=== PATIENT | male | born 1965 | race Caucasian/White ===

== ENCOUNTER 2017-05-13 18:20 | Inpatient (IN) | payer BC ==
[~2017-05-13] VITALS: Ht 182.9 cm; Wt 118.0 kg
--- NOTE | ~2017-05-13 | HP ---
PATIENT'S NAME: BAR ASHFORD [facility] AGE: 51 Y [address] ROOM: G6338 [place], [place] [address] LOCATION: GPCU ADMIT DATE: 05/13/2017 History & Physical DISCHARGE DATE: FAMILY PHYSICIAN: PHYSICIAN, UNKNOWN ATTENDING PHYSICIAN: Mackenzie Victor DATE OF SERVICE: 05/13/2017 HISTORY OF PRESENT ILLNESS: Mr. 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 This is the first time he has noticed chest pain after 3 years. Three years back, he had symptoms and had multiple stenting in his coronaries, the last time was 3 years back. Today, around 5:00, when he was just sitting down doing nothing, he started developing central chest pain, which he rated at about 5 to 6 on a scale of 1 to 10, without any radiation or associated features. This was very similar to his pain when he had an FL on the table in [place] when they were doing a stent. He went to the emergency room. The patient was given aspirin, heparin and was sent over right away, and he was taken directly to the [facility] for primary PCI. The patient is not on any regular structured exercise program. He has not been noticing any shortness of breath with his usual activities of daily living. He is in functional class II to III with no paroxysmal nocturnal dyspnea or orthopnea. He denies lightheadedness, dizziness, syncope, presyncope, palpitations, or ankle swelling. Today, when the pain was on, he did notice some sense of being maybe dizzy. The patient has a history of hypertension, type 2 diabetes, and elevated cholesterol. He has significant family history of premature coronary artery disease. There is no history of recent tobacco abuse. He quit smoking a number of years ago. The patient has history of FL, which occurred on the table when he was having a stent put in [place]. He denies rheumatic fever, heart murmur, heart failure, dilated or enlarged heart, or any diagnosed cardiac arrhythmias. His medication list is currently not available. ALLERGIES: NONE. PAST MEDICAL HISTORY: 1. Five separate stents in his heart arteries. PATIENT'S NAME: [facility] AGE: 51 Y [address] ROOM: [address] [address] LOCATION: [facility] ADMIT DATE: 05/13/2017 History & Physical DISCHARGE DATE: FAMILY PHYSICIAN: PHYSICIAN, UNKNOWN ATTENDING PHYSICIAN: Mackenzie Victor 2. Right knee surgery. 3. Right shoulder surgery. 4. He had his shoulder manipulated just recently. 5. History of kidney stones. SOCIAL HISTORY: The patient is . He works at [employer] in [place]. He denies abusing alcohol. His appetite and weight are stable. Sleep is fair. FAMILY HISTORY: Positive for premature coronary artery disease. REVIEW OF SYSTEMS: A 12-point review of systems reveal no significant positives. PHYSICAL EXAMINATION: VITAL SIGNS: His blood pressure is 160/80, heart rate is in the 80s and regular, respiration is 18, afebrile. HEENT: Normal. NECK: Supple with no JVD, thyromegaly, lymphadenopathy, or carotid bruit. PMI is not well located. First and second heart sounds are regular. There are no added sounds or murmurs. CHEST: Clear to auscultation. ABDOMEN: Soft, obese. Bowel sounds are normally present. EXTREMITIES: Reveal no edema. CENTRAL NERVOUS SYSTEM: Intact. ASSESSMENT: A 51-year-old male patient with hypertension, diabetes, elevated cholesterol, and family history of premature coronary artery disease, who has had 5 different stents in the past and at least 1 episode of heart attack on the table as he was having a stent put in, presents with chest pain for just 2 days. Today's chest pain is associated with slightly widened QRS complex and slightly elevated J-point in lead III. His pain has been ongoing for the past at least 2 hours, and he thinks that it is very consistent with his heart pains. RECOMMENDATION: We will proceed with primary PCI after cardiac catheterization proves that he has truly significant coronary occlusion. MACKENZIE VICTOR MD [facility]: 51 Y [address] ROOM: G6[address] [place], [place] [address] LOCATION: [facility] ADMIT DATE: 05/13/2017 History & Physical DISCHARGE DATE: FAMILY PHYSICIAN: PHYSICIAN, UNKNOWN ATTENDING PHYSICIAN: Mackenzie Victor /[id number] D: [id number] T: [id number] HISTORY & PHYSICAL
--- NOTE | ~2017-05-13 | CATH ---
Cardiac Diagnostic + PCI Report Demographics Patient Name AYDE DINERO Gender Male Date of 1965 Age 51 year(s) Patient Number [id number] Date of Study 05/13/2017 Visit Number [id number] Room Number G6[address] [place] [id number] Ht 182.88 cm Wt 118.4 kg Referring Primary Physician Physician Marco A Victor Secondary Physician Physician Mackenzie BAILEY Diagnostic Kayleigh Assisting Physician Physician Mackenzie BAILEY Interventional Kayleigh Physician Weed Control Inspector Physician Mackenzie BAILEY Findings and Conclusions Diagnostic Findings and Conclusion LVEDP 20 AO 140/80 No gradiant Stents seen Calcification involving proximal coronaries RCA 99% in-stent re-stenosis Diagnostic Recommendations PCI to RCA Interventional Findings and Conclusion Successful PCI of RCA with a IGNACIO. Interventional Recommendations DAPT for one year Aggressive 2nd degree preventative measures. Procedure Description The patient was brought to the diagnostic cardiac catheterization-EP laboratory in the fasting, non-sedated state. Informed consent was obtained in the written and verbal form after the risks and benefits were explained. The patient had no further questions and agreed to proceed. The planned puncture-incision site(s) were shaved and prepped with ChloraPrep and draped in the usual sterile manner. Conscious sedation, supplemental oxygen, and pain control medications were delivered by a registered nurse under physician guidance. Surface ECG rhythm, blood pressure measurement, and pulse oximetry were monitored throughout the procedure. Arterial access. The access site was infiltrated with lidocaine. The vessel was entered with the Seldinger technique. A sheath was advanced into the vessel and used for catheter placement. Selective left coronary angiography. A catheter was advanced into the left coronary vessel ostium under Fluoroscopic guidance. Contrast was injected by hand. Images were obtained in multiple projections. Selective right coronary angiography. A catheter was advanced into the right coronary vessel ostium under fluoroscopic guidance. Contrast was injected by hand. Images were obtained in multiple projections. Left heart catheterization. A catheter was advanced across the aortic valve to the left ventricle under fluoroscopic guidance. Resting hemodynamics were obtained. Stent Placement: A guiding catheter was used to intubate the vessel. A 0.14 wire was used to cross the lesion. A Drug Eluting Stent was placed. Post placement angiograms were performed. Arterial artery hemostasis was achieved. The patient was transferred to a regular nursing floor via cart accompanied by a nurse. The patient left the laboratory in stable condition. Diagnostic Cath Status: Emergency Procedure Procedure Type Diagnostic procedure:Angiography:, Coronary Angios /[facility] PCI procedure:Drug Eluting Coronary Stent:, RCA Indications: Acute MS. The procedure was explained in detail to the patient. Risks, complications and alternative treatments were reviewed. Written consent was obtained. Medications Reviewed with Patient prior to Procedure. Angiographic Findings Dominance: Right Cardiac Arteries and Lesion Findings LMCA: Abnormal.luminal irregularities LAD: Abnormal.Type 3 Mild diffuse disease Diag D2 ostial 40% stenosis D5 Ostial 40% after D3 70 lesion in LAD LCx: Abnormal.Mild diffuse luminal disease. RCA: Abnormal.Dominant, proximal and mid long stented segment. Distal RCA long 0% Deo flow 0-3 Lesion on Mid RCA: 99% stenosis reduced to 0%. Pre procedure DEO 0 flow was noted. Post Procedure DEO III flow was present. The guidewire cross was successful.The lesion was diagnosed as a high risk lesion.Culprit lesion. The lesion was previously treated with the following techniques: stent unknown type. This is in-stentrestenosis. Devices used - Luge Wire .014 x 182. Number of passes: 1. - Emerge Balloon 2.5 x 20. 2 inflation(s) to a max pressure of: 14 telly. - Promus Premier 2.75 x 32 Stent. 1 inflation(s) to a max pressure of: 14 telly. Coronary Tree Procedure Data Procedure Date Date: 05/13/2017Start: 07:25 PMEnd: 08:31 PM Entry Locations - Retrograde Percutaneous access was performed through the Right Femoral artery (Primary location). A 7 Fr sheath was inserted. Hemostasis was successfully obtained using Perclose ProGlide (Portillo). Closure Comments: by. Sabino Pappas Procedure Medications Order and Administration + + + + + !Time !Medication !Dosage !Route ! + + + + 05/13/2017 07:27 !Versed !1 mg ! ! !PM ! ! ! ! + + + + 05/13/2017 07:28 !Fentanyl !25 mcg ! ! !PM ! ! ! ! + + + + 05/13/2017 07:38 !Heparin (ACC_3) !4000 units !I.V. bolus ! !PM ! ! ! ! + + + + 05/13/2017 07:39 !Aggrastat (Tirofiban) !2925 mcg !I.V. bolus ! !PM ! ! ! ! + + + + 05/13/2017 07:43 !Aggrastat (Tirofiban) !0.15 mcg/kg/min!I.V. drip ! !PM ! ! ! ! + + + + + !05/13/2017 07:54 !Heparin (ACC_3) ! !I.V. bolus ! !PM ! ! ! ! + + + + + !05/13/2017 07:59 !0.9% NaCl !70 ml/hr !I.V. drip ! !PM ! ! ! ! + + + + + !05/13/2017 07:59 !Brilinta (Ticagrelor) !180 mg !P.O. ! !PM !(ACC_20) ! ! ! + + + + + Devices Used - A6 Fr. BS JR 4 Diag. Catheterwas used for:Right coronary angiography. - A6 Fr. BS JL 4 Diag. Catheterwas used for:Left coronary angiography. - A6 Fr. JR4 Guide Catheterwas used for:RCA Intervention. - A6 Fr. BS Angled Pigtail Diag. Catheterwas used for:LV Pressures. Contrast Material - Isovue 155818 ml Fluoroscopy Time: Diagnostic: 7:54 minutes. Total: 7:54 minutes. Estimated Blood Loss: 10 ml. Medical History Allergies - No known allergies. Risk Factors The patient risk factors include:prior PCI;hypercholesterolemia, hypertension, family history of premature CAD, orally-treated diabetes mellitus, last creatinine: 0.8 mg/dl, creatinine clearance: 187.06 ml/min, dyslipidemia, renal failure, former tobacco use and prior MS . Admission Data Admission Date: 05/13/2017 Admission Time: 07:07 PM Insurance Payors: Private health insurance. Clinical Evaluation Leading to Procedure - The patient's CAD presentation was assessed as: Non-STEMI. - The patient's anginal syndrome during the past two weeks was assessed as: Class III according to the [place] Cardiovascular Society Classification System (CCS). Hemodynamics Condition: Rest O2 Consumption: Estimated: 297.19Heart Rate: 82 bpm Pressures (mmHg) +-----+ + !Site !Pressure ! +-----+ + !AO !158/85 (116) ! +-----+ + !LV !147/8 ,23 ! +-----+ + !LV !149/8 ,22 ! +-----+ + !AO !148/78 (111) ! +-----+ + !LV !148/7 ,19 ! +-----+ + Valve Gradients and Areas + +---------+---------+---------+ +---------+ + !Valve !Peak !Mean !Area !Index !Flow !Source ! + +---------+---------+---------+ +---------+ + !Aortic !0 !0 ! ! ! ! ! + +---------+---------+---------+ +---------+ + !Aortic !0 !0 ! ! ! ! ! + +---------+---------+---------+ +---------+ + Shunts Oxygen Values O2 Capacity 227.12 O2 Consumption 297.19 Discharge Data Discharge Date: 05/15/2017 Hospital Status: Inpatient Signatures dtt: Mackenzie Victor: 05/13/17 1925 Physician Self Edit
--- NOTE | ~2017-05-13 | ECHO ---
Transthoracic Echocardiography Report (TTE) Demographics Patient Name BAR MESSER Date of Study 05/14/2017 Patient Number [id number] Visit Number [id number] Date of 1965 Room Number G6338 Gender Male Number Age 51 year(s) Referring Rubber Tubing Splicer Joey RVT, RDCS Physician Betty Physician Interpreting Kayleigh Mann MD Ambulatory Nurse Physician Supervising Ordering Kayleigh Mann MD, MD/MLP Physician Nurse Stress Cook Helper Vegetable Conclusions Contractility Score Summary Normal Left Ventricular contractility was noted. Summary The estimated left ventricular ejection fraction is 60-65% with normal internal dimension and WM.Mild to moderate concentric left ventricular hypertrophy. Trivial TR. Procedure Type of Study TTE procedure:2D Echocardiogram, M-Mode, Doppler , Color Doppler. Procedure Date Date: 05/14/2017 Start: 11:01 AM Study Location: Inpatient Portable Technical Quality: Adequate visualization Additional Indications:STEMI, prolonged CP Appropriate Use Criteria: 9 Patient Status: Routine HR: 56 bpm BP: 168/88 mmHg M-Mode/2D Measurements LV Diastolic Dimension: 5.08 cm LV Systolic Dimension: 3.21 cm LV Septum Diastolic: 1.35 cm LV PW Diastolic: 1.48 cm AO Root Dimension: 2.7 cm Cardiac Output: 3.2 l/min AV Cusp Separation: 2.1 cm RV Diastolic Dimension: 3.34 cm LA volume: 23 ml LVOT: 2.1 cm RV Base: 2.19 cm LVOT VTI: 16.5 cm RV Mid: 2.91 cm LV Stroke volume: 57.12 ml TAPSE: 2.52 cm TDI-S': 14.9 cm/s Doppler Measurements AV Peak Velocity: 0.71 m/s MV Peak E-Wave: 0.62 m/s AV Peak Gradient: 2.02 mmHg MV Peak A-Wave: 0.45 m/s AV Mean Gradient: 1 mmHg MV E/A Ratio: 1.4 LVOT Peak Velocity: 0.59 m/s MV P1/2t: 53 msec PV Peak Velocity: 0.77 m/s E' Septal Velocity: 0.08 m/s PV Peak Gradient: 2.37 mmHg E' Lateral Velocity: 0.06 m/s A' Septal Velocity: 0.06 m/s A' Lateral Velocity: 0.05 m/s Findings Left Ventricle Mild to moderate concentric left ventricular hypertrophy with normal internal dimension,EF and WM. Right Ventricle Normal right ventricle structure and function. Left Atrium Normal left atrial size. Right Atrium Normal right atrial size. Mitral Valve Normal mitral valve structure and function. Aortic Valve Normal aortic valve structure and function. Tricuspid Valve Trivial tricuspid regurgitation by color Doppler. Pulmonic Valve Normal pulmonic valve structure and function. Pericardial Effusion No evidence of pericardial effusion. Miscellaneous Visualized portions of the aortic root and ascending aorta appear normal in size. Pleural Effusion No evidence of pleural effusion. Contractility Score LV regional wall motion:(0-Non visualized 1-Normal 2-Hypokinesis 3-Akinesis 4-Dyskinesis 5-Aneurysm) Signature dtt: Mackenzie Victor dtd: 05/14/17 1107 Physician Self Edit
[2017-05-13 20:03] LABS: ALBUMIN 3.6 gm/dL (3.5-5.0); ALK PHOS 103 IU/L (33-138); ALT 29 IU/L (12-78); ANION GAP 12.3 (10.0-19.0); AST 17 IU/L (10-40); BLOOD UREA NITROGEN 11 mg/dL (6-24); CALCIUM 8.5 mg/dL (8.5-10.5); CHLORIDE 106 mMol/L (96-110); CO2 26 mMol/L (22-32); CREATININE 0.8 mg/dL (0.6-1.3); POTASSIUM 4.3 mMol/L (3.7-5.1); SODIUM 140 mMol/L (135-145); TOTAL BILIRUBIN 0.6 mg/dL (0.0-1.5); TOTAL PROTEIN 7.2 g/dL (6.0-8.4)
[2017-05-13] MEDS ORDERED: PRINIVIL (ZESTR20 MG PO (20:45)
[2017-05-13] MEDS ORDERED: METFORMIN HCL1000 MG PO (20:46)
[2017-05-13] MEDS ORDERED: LIPITOR40 MG PO (20:47)
[2017-05-13] MEDS ORDERED: LEVEMIR100 UNIT/1 SUB-Q (20:48)
[2017-05-13] MEDS ORDERED: NEURONTIN300 MG PO (20:48)
[2017-05-13] MEDS ORDERED: CARVEDILOL12.5 MG PO (20:49)
[2017-05-13] MEDS ORDERED: NORVASC5 MG PO (20:49)
[2017-05-13] MEDS ORDERED: LASIX20 MG PO (20:50)
[2017-05-14 07:50] LABS: ALBUMIN 3.1 gm/dL (3.5-5.0); ALK PHOS 89 IU/L (33-138); ALT 28 IU/L (12-78); ANION GAP 11.7 (10.0-19.0); AST 65 IU/L (10-40); BLOOD UREA NITROGEN 10 mg/dL (6-24); CALCIUM 8.6 mg/dL (8.5-10.5); CHLORIDE 107 mMol/L (96-110); CO2 28 mMol/L (22-32); CREATININE 0.7 mg/dL (0.6-1.3); POTASSIUM 3.7 mMol/L (3.7-5.1); SODIUM 143 mMol/L (135-145); TOTAL BILIRUBIN 0.5 mg/dL (0.0-1.5); TOTAL PROTEIN 6.2 g/dL (6.0-8.4)
[2017-05-15] MEDS ORDERED: BRILINTA90 MG PO (12:09)
[2017-05-15] MEDS ORDERED: PROTONIX40 MG PO (12:09)
[2017-05-15] MEDS ORDERED: NITROSTAT0.4 MG PO (12:10)
== END 2017-05-15 12:44 | disposition disaster alternative care site (69) | DRG 247 ==
LOC: UNDOADMIN 19:00 → GPCU 19:00
PROVIDERS: ADMIT Internal Medicine Interventional Cardiology
DX: I21.11 ST elevation (STEMI) myocardial infarction involving right coronary artery (principal); E11.65 Type 2 diabetes mellitus with hyperglycemia; T82.855A Stenosis of coronary artery stent, initial encounter; I10 Essential (primary) hypertension; I25.10 Atherosclerotic heart disease of native coronary artery without angina pectoris; I25.84 Coronary atherosclerosis due to calcified coronary lesion; Z79.4 Long term (current) use of insulin; E66.9 Obesity, unspecified; Z68.36 Body mass index [BMI] 36.0-36.9, adult; E78.5 Hyperlipidemia, unspecified; I25.2 Old myocardial infarction; G89.18 Other acute postprocedural pain; M25.511 Pain in right shoulder; Z87.891 Personal history of nicotine dependence; Z82.49 Family history of ischemic heart disease and other diseases of the circulatory system; Z87.442 Personal history of urinary calculi
CPT/HCPCS: C1725; C1760; C1769; C1874; C1887; C9606; J1644; J2250; J2405; J3010; J3246; J3475; J7030

== ENCOUNTER → 2017-05-13 | Outpatient (CLI) | payer BC ==
[~2017-05-13] MED LIST: ASPIRIN EC81 MG PO; BRILINTA90 MG PO; CARVEDILOL12.5 MG PO; JARDIANCE10 MG PO; LASIX20 MG PO; LEVEMIR100 UNIT/1 SUB-Q; LIPITOR40 MG PO; METFORMIN HCL1000 MG PO; NEURONTIN300 MG PO; NITROSTAT0.4 MG PO; NORVASC5 MG PO; PRINIVIL (ZESTR20 MG PO; PROTONIX40 MG PO
== END | disposition disaster alternative care site (69) ==
LOC: GAIR 18:49
DX: I49.9 Cardiac arrhythmia, unspecified (principal); I10 Essential (primary) hypertension; E78.5 Hyperlipidemia, unspecified; R07.9 Chest pain, unspecified
CPT/HCPCS: A0422; A0431; A0436; J3010

== ENCOUNTER 2017-05-16 14:40 | Observation (INO) | payer BC ==
[~2017-05-16] VITALS: Ht 182.9 cm; Wt 119.0 kg
--- NOTE | ~2017-05-16 | ER ---
PATIENT'S NAME: BAR ASHFORD [facility] AGE: 51 Y [address] ROOM: [place] [address] LOCATION: GPCU ADMIT DATE: 05/16/2017 ER/Outpatient Report DISCHARGE DATE: FAMILY PHYSICIAN: Peggy Sanchez APRN ATTENDING PHYSICIAN: Mackenzie Victor CHIEF COMPLAINT: Chest pain. HISTORY OF PRESENT ILLNESS: [place]. [place] developed chest pain. This feels exactly like his chest pain that he had 4 days ago with a heart attack. The pain is pressure like in the center of his chest. It does not radiate much. It is difficult for him to describe other than it just feels like pain. He has taken 2 nitro and that took it from a 9 or 10 down to about a 7 or 8; however, he still feels very uncomfortable. He did have a heart attack on and was stented by Dr. Victor. He has not started his medication as it was too expensive. He was discharged yesterday and was pain-free up until today. He was at rest when these symptoms started. PAST MEDICAL HISTORY: Documented on the record and reviewed by me. SOCIAL HISTORY: Documented on the record and reviewed by me. MEDICATIONS: Documented on the record and reviewed by me. ALLERGIES: DOCUMENTED ON THE RECORD AND REVIEWED BY ME. REVIEW OF SYSTEMS: All systems were reviewed and negative except as noted in the HPI. PHYSICAL EXAMINATION: VITAL SIGNS: Blood pressure 144/76, pulse 75, respiratory rate 14, temperature 97.8, and SpO2 is 98% on room air. Pain is rated at 3 to 5 as it does fluctuate some. GENERAL: Age-appropriate male, recumbent on the exam table, in mild pain. No outward signs of distress. NEUROLOGIC: Awake and alert. GCS 15. No focal deficits. No asymmetry. HEENT: Normocephalic, atraumatic. Eyes are PERRL. Oropharynx is clear. NECK: Supple. Trachea is midline. CHEST: Heart has regular rate and rhythm with no murmurs. PATIENT'S NAME: BAR ASHFORD [facility] AGE: 51 Y [address] ROOM: [place] [address] LOCATION: GPCU ADMIT DATE: 05/16/2017 ER/Outpatient Report DISCHARGE DATE: FAMILY PHYSICIAN: Peggy Sanchez APRN ATTENDING PHYSICIAN: Mackenzie Victor LUNGS: Clear to auscultation bilateral. No rhonchi, wheezes, or rales. ABDOMEN: Soft, nontender, nondistended. No rebound or guarding. BACK: Normal to inspection and palpation. GROIN: Notable for some ecchymosis at the venipuncture site, but otherwise unremarkable. EXTREMITIES: Warm and well perfused. No obvious other abnormalities. LABORATORY DATA AND X-RAYS: Chest x-ray reviewed by me is unremarkable. EKG is unchanged compared to prior EKG from 05/14. Labs: CMS with no appreciable abnormalities other than a glucose of 270. Troponin is 2.020, CK-MB is 1.6, CPK is 50. Magnesium of 1.5. INR is 1. CBC with no appreciable abnormalities. IMPRESSION: Chest pain. EMERGENCY DEPARTMENT COURSE: The patient was seen and evaluated as above. He has active chest pain, and was started on a nitroglycerin drip, which did improve his chest pain somewhat, but it was causing him to have worsening headache. Blood pressures remained okay. He was given Dilaudid with resolution of chest pain. I discussed the case with Dr. Victor, customer logistics manager. There is some concern for possible in-stent restenosis. For that reason, the patient was taken by the bolt labeler team for further evaluation and treatment of his chest pain. He was not having any chest pain upon departure from the ER. Second set of enzymes were drawn but not reported, and second round EKG was not obtained as the patient left the ER before that could happen. All questions were answered, and the patient was admitted. MD BRETT BLANKENSHIP/yemi /[id number] d: 05/17/17 0652 t: 05/24/17 1010, OUTPATIENT REPORT
--- NOTE | ~2017-05-16 | CON ---
PATIENT'S NAME: BAR ASHFORD [facility] AGE: 51 Y [address] ROOM: [place] [address] LOCATION: GPCU ADMIT DATE: 05/16/2017 Consultation DISCHARGE DATE: FAMILY PHYSICIAN: Peggy Sanchez APRN ATTENDING PHYSICIAN: Mackenzie Victor REASON FOR CONSULTATION: Diabetes management. CHIEF COMPLAINT: Chest pain. HISTORY OF PRESENT ILLNESS: Mr. Bar Ashford is a 51-year-old gentleman who was recently discharged from the hospital after getting stenting to the LAD as well as circumflex, presented to the emergency department again today with chest pain, which was located in the center, pressure like, 8/6, no radiation, no alleviating factors, little shortness of breath associated with it, but no dizziness or anxiety or diaphoresis. He denied any PND, orthopnea, or leg swelling. He denied any abdominal pain, burning on urination, constipation, diarrhea, or muscle tenderness. There was no association of movement with this chest pressure. He came to the emergency department and Dr. Victor was consulted and he was taken directly to the oil field laborer where a mid LAD lesion was stented again. I saw him postoperatively and nothing of changes I have mentioned in the HPI. REVIEW OF SYSTEMS: All other systems are reviewed and are negative except what is mentioned in the HPI. ALLERGIES: NO KNOWN DRUG ALLERGIES. PAST MEDICAL HISTORY: Coronary artery disease with multiple stentings done, insulin dependent diabetes, hypertension, and history of knee surgeries. MEDICATIONS: Being reconciled right now. FAMILY HISTORY: Positive for premature coronary artery disease. SOCIAL HISTORY: The patient quit smoking 6 years ago. PATIENT'S NAME: BAR ASHFORD [facility] AGE: 51 Y [address] ROOM: [address] [address] LOCATION: GPCU ADMIT DATE: 05/16/2017 Consultation DISCHARGE DATE: FAMILY PHYSICIAN: Peggy Sanchez APRN ATTENDING PHYSICIAN: Mackenzie Victor PHYSICAL EXAMINATION: VITAL SIGNS: Reviewed. Blood pressure 112/68, pulse 62, afebrile, and saturating 95% on room air. GENERAL: No acute distress. Alert and oriented x3. HEENT: Head: Atraumatic, normocephalic. Eyes: Nonicteric. No pallor. Oropharynx: Moist mucous membranes. CARDIOVASCULAR: S1, S2. No murmurs, gallops, or rubs. LUNGS: Clear to auscultation bilaterally. ABDOMEN: Soft, nontender, and nondistended. Bowel sounds present. EXTREMITIES: No clubbing, cyanosis, or edema. PSYCHIATRY: Normal affect, mood, and speech. NEUROLOGIC: Cranial nerves 2 through 12 intact. No motor or sensory deficits. MUSCULOSKELETAL: No muscle tenderness or swelling noted. ENDOCRINE: No thyromegaly or myxedema noted. LYMPHATICS: No lymphangiitis or lymphadenopathy noted. LABORATORY DATA: EKG was done in the emergency department showed sinus bradycardia with Q-waves in the anterior as well as inferior leads. Troponins were done, they were elevated up to the level of 3, but he recently had a full-blown myocardial infarction. Rest of the lab work is pending at this point. ASSESSMENT/PLAN: 1. Insulin-dependent diabetes mellitus. 2. Hypertension. 3. Coronary artery disease. PLAN: In the previous hospitalization, his HbA1c was found to be 11.9. We started him on 50 units of Levemir b.i.d. and still he was in above 200s all the time. On discharge, we last time advised him to go to the primary care physician in 1 week with a blood glucose record and insulin can be adjusted. Today, we are going to increase the dose of Levemir to 60 b.i.d. and moderate scale sliding scale insulin. We are going to monitor the blood glucose and make adjustment as necessary. Rest of the management per Cardiology. Thank you for involving us in the care of this patient. MD CELESTINE SAUL/yemi PATIENT'S NAME: BAR ASHFORD [facility] AGE: 51 Y [address] ROOM: [address] [place], [place] [address] LOCATION: GPCU ADMIT DATE: 05/16/2017 Consultation DISCHARGE DATE: FAMILY PHYSICIAN: Peggy Sanchez ENVIRONMENTAL COMPLIANCE OFFICER ATTENDING PHYSICIAN: Mackenzie Victor /[id number] d: 05/16/17 2257 t: 05/17/17 0354, CONSULTATION REPORT
--- NOTE | ~2017-05-16 | CATH ---
Cardiac Diagnostic + PCI Report Demographics Patient Name AYDE DINERO Gender Male Date of 1965 Age 51 year(s) Patient Number [id number] Date of Study 05/16/2017 Visit Number [id number] Room Number G6[address] [place] [id number] Ht 182.88 cm Wt 118 kg Referring Yuridia Lobato MD Primary Physician Physician Performing Kayleigh Secondary Physician Physician Mackenzie BAILEY Diagnostic Kayleigh Assisting Physician Physician Mackenzie BAILEY Interventional Kayleigh Physician Feed Mill Manager Physician Mackenzie BAILEY Findings and Conclusions Diagnostic Findings and Conclusion LVEDP 6. No gradient across aortic valve. Calcification involving proximal coronaries. Mid LAD lesion of 70% with an iFR of 0.86. Diagnostic Recommendations PCI of mid LAD lesion with IGNACIO. Interventional Findings and Conclusion Mid LAD 70%-0% TAHMINA 3 flow. Interventional Recommendations DAPT x 2 years. Aggressive secondary prevention measures. Procedure Description The patient was brought to the diagnostic cardiac catheterization-EP laboratory in the fasting, non-sedated state. Informed consent was obtained in the written and verbal form after the risks and benefits were explained. The patient had no further questions and agreed to proceed. The planned puncture-incision site(s) were shaved and prepped with ChloraPrep and draped in the usual sterile manner. Conscious sedation, supplemental oxygen, and pain control medications were delivered by a registered nurse under physician guidance. Surface ECG rhythm, blood pressure measurement, and pulse oximetry were monitored throughout the procedure. Arterial access. The access site was infiltrated with lidocaine. The vessel was entered with the Seldinger technique. A sheath was advanced into the vessel and used for catheter placement. Selective left coronary angiography. A catheter was advanced into the left coronary vessel ostium under Fluoroscopic guidance. Contrast was injected by hand. Images were obtained in multiple projections. Selective right coronary angiography. A catheter was advanced into the right coronary vessel ostium under fluoroscopic guidance. Contrast was injected by hand. Images were obtained in multiple projections. Left heart catheterization. A catheter was advanced across the aortic valve to the left ventricle under fluoroscopic guidance. Resting hemodynamics were obtained. iFR measurement was performed. The vessel was entered with a guiding catheter. The iFR wire was normalized and then advanced across the lesion. Measurements were taken. Angioplasty and Stent Placement: A guiding catheter was used to intubate the vessel. A 0.14 wire was then used to cross the lesion. A balloon catheter was placed across the lesion and inflated. The balloon catheter was then removed. A Drug Eluting Stent was placed and inflated. Post placement angiograms were performed. iFR measurement was performed. The vessel was entered with a guiding catheter. The iFR wire was normalized and then advanced across the lesion. Measurements were taken. Arterial artery hemostasis was achieved. The patient was transferred to a regular nursing floor via cart accompanied by a nurse. The patient left the laboratory in stable condition. Diagnostic Cath Status: Emergency Interventional Cath Status: Emergency Procedure Procedure Type Diagnostic procedure:Angiography:, Coronary Angios w/C PCI procedure:Drug Eluting Coronary Stent:, LAD, Additional Imaging:, FFR/iFR:, Initial Vessel, Add'l Vessel Indications: Chest pain. The procedure was explained in detail to the patient. Risks, complications and alternative treatments were reviewed. Written consent was obtained. Medications Reviewed with Patient prior to Procedure. Angiographic Findings Dominance: Right Cardiac Arteries and Lesion Findings LMCA: Minor Luminal Irregularities. LAD: Moderate diffuse disease. Stent seen. Lesion on Mid LAD: Proximal subsection.70% stenosis 20 mm length reduced to 0%. Pre procedure TAHMINA III flow was noted. Post Procedure TAHMINA III flow was present. The guidewire cross was successful.The lesion was diagnosed as a moderate risk lesion.Culprit lesion. Treatment results:Interventional treatment was successful. Comments:iFR 0.86 Devices used - Verrata Pressure Wire. Number of passes: 1. - Emerge Balloon 2.0 x 15. 1 inflation(s) to a max pressure of: 10 telly. - Promus Premier 2.25 x 20 Stent. 1 inflation(s) to a max pressure of: 16 telly. - Verrata Pressure Wire. Number of passes: 1. LCx: Lesion on 1st Ob Elsie: Ostial.50% stenosis . Comments:iFR 0.94 RCA: Stent patent. PL moderate diffuse disease.There is a previous stent on Mid RCA. Coronary Tree Procedure Data Procedure Date Date: 05/16/2017Start: 05:56 PMEnd: 07:09 PM Entry Locations - Retrograde Percutaneous access was performed through the Right Radial artery (Primary location). A 6 Fr sheath was inserted. Hemostasis was successfully obtained using Mechanical Compression. Closure Comments: R band with 12 cc air deployed by RT. Candi. Procedure Medications Order and Administration + + + +---------+ !Time !Medication !Dosage !Route ! + + + +---------+ !05/16/2017 !Fentanyl !25 mcg !I.V. ! !05:48 PM ! ! ! ! + + + +---------+ !05/16/2017 !Versed !1 mg !I.V. ! !05:49 PM ! ! ! ! + + + +---------+ !05/16/2017 !Brilinta (Ticagrelor) (ACC_20) !180 mg !P.O. ! !05:51 PM ! ! ! ! + + + +---------+ !05/16/2017 !NATHAN Radial Cocktail: Nitroglycerin ! !I.A. ! !05:56 PM !100mcg, Verapamil 3 mg, Lidocaine ! ! ! ! !40mg (ACC_3) ! ! ! + + + +---------05/16/2017 !Heparin (ACC_3) !5000 units !I.V. ! !05:57 PM ! ! ! ! + + + +---------05/16/2017 !Aggrastat (Tirofiban) !29.25 mg !I.V. ! !06:11 PM ! ! !bolus ! + + + +---------05/16/2017 !Aggrastat (Tirofiban) !0.15 !I.V. ! !06:11 PM ! !mcg/kg/min !bolus ! + + + +---------+ 05/16/2017 !Heparin (ACC_3) !5000 units !I.V. ! !06:14 PM ! ! ! ! + + + +---------+ !05/16/2017 !0.9% NaCl !75 ml/hr !I.V. drip! !06:24 PM ! ! ! ! + + + +---------+ !05/16/2017 !Fentanyl !25 mcg !I.V. ! !06:36 PM ! ! ! ! + + + +---------+ !05/16/2017 !Nitroglycerin ! !I.V. drip! !07:07 PM ! ! ! ! + + + +---------+ Devices Used - A6 Fr. BS JR 4 Diag. Catheterwas used for:Right coronary angiography. - A6 Fr. BS JL 4 Diag. Catheterwas used for:Left coronary angiography. - A6 Fr. XBLAD 3.5 Guide Catheterwas used for:LAD Intervention. Contrast Material - Isovue [id number] ml Fluoroscopy Time: Diagnostic: 17:42 minutes. Total: 17:42 minutes. Fluoroscopy Dose: Diagnostic: 1920 mGy. Total: 1920 mGy. Estimated Blood Loss: 30 ml. Additional [facility] PCI Information PCI Indication:PCI for high risk Non-STEMI or unstable angina. Medical History Performed Procedures and Imaging Results - No ACC stress or imaging studies were performed. Allergies - No known allergies. Risk Factors The patient risk factors include:prior PCI on 05/13/2017;hypertension, family history of premature CAD, diabetes mellitus, last creatinine: 1 mg/dl, creatinine clearance: 149.14 ml/min, dyslipidemia, former tobacco use and prior AL . Admission Data Admission Date: 05/16/2017 Admission Time: 03:55 PM Admit Source: Emergency department Insurance Payors: Private health insurance. Admission Medications + +------+------+ + + + + !Medication !Dosage!Times !Last !Last !Administered !Comments ! ! ! !Per !Delivery !Delivery ! ! ! ! ! !Day !Date !Time ! ! ! + +------+------+ + + + + !Statin (any)! ! ! ! !Yes ! ! + +------+------+ + + + + !NITA ! ! ! ! !Yes ! ! !Inhibitor ! ! ! ! ! ! ! !(any) ! ! ! ! ! ! ! + +------+------+ + + + + !Beta Estrella! ! ! ! !Yes ! ! !(any) ! ! ! ! ! ! ! + +------+------+ + + + + !Bivalirudin ! ! ! ! !Yes ! ! + +------+------+ + + + + Clinical Evaluation Leading to Procedure - The patient's CAD presentation was assessed as: Non-STEMI.The symptom onset was first noted on 05/13/2017 01:00 PM(time was estimated). - The patient's anginal syndrome during the past two weeks was assessed as: Class IV according to the [place] Cardiovascular Society Classification System (CCS). Anti-anginal medications were prescribed during the past two weeks. The medications are: Beta Blockers and Ca channel Blockers. Hemodynamics Condition: Rest O2 Consumption: Estimated: 291.86Heart Rate: 77 bpm Pressures (mmHg) +-----+ + !Site !Pressure ! +-----+ + !LV !128/3 ,6 ! +-----+ + !LV !124/1 ,5 ! +-----+ + !AO !130/81 (103) ! +-----+ + !LV !126/3 ,7 ! +-----+ + !AO !121/75 (97) ! +-----+ + Valve Gradients and Areas + +---------+---------+---------+ +---------+ + !Valve !Peak !Mean !Area !Index !Flow !Source ! + +---------+---------+---------+ +---------+ + !Aortic !0 !0 ! ! ! ! ! + +---------+---------+---------+ +---------+ + !Aortic !0 !0 ! ! ! ! ! + +---------+---------+---------+ +---------+ + Shunts Oxygen Values O2 Capacity 218.96 O2 Consumption 291.86 Discharge Data Discharge Date: 05/17/2017 Hospital Status: Inpatient Signatures dtt: Mackenzie Victor dtrio: 05/16/17 1756 Physician Self Edit
--- NOTE | ~2017-05-16 | HP ---
PATIENT'S NAME: BAR ASHFORD [facility] AGE: 51 Y [address] ROOM: [place] [address] LOCATION: GPCU ADMIT DATE: 05/16/2017 History & Physical DISCHARGE DATE: FAMILY PHYSICIAN: Peggy Sanchez APRN ATTENDING PHYSICIAN: Mackenzie Victor DATE OF SERVICE: 05/16/2017 HISTORY OF PRESENT ILLNESS: Mr. Ashford is a 51-year-old male patient, who was hospitalized with an acute inferior wall KS on 05/13/2017 and underwent one long drug-eluting stent in the proximal ostial RCA for a long segment and diffuse in-stent restenosis of previously placed stents. After he went home, his insurance company did not approve his Brilinta and so he did not take a dose of Brilinta on 05/15 evening and 05/16 morning. He also did not take his baby aspirin on 05/16 morning. Around 1 o'clock on 05/16/2017, the patient developed some discomfort in his chest, very similar to his KS pain. So, he came to the emergency room where his initial set of EKG and enzymes were unremarkable, other than the fact that his troponins are still trending down slowly from the previous increase at the time of his KS. As his EKG did not show anything acute, he was initially treated with medications including getting his aspirin, Brilinta, which both administered in the catheterization lab. Before coming to the paving and surfacing labourer, he was in the emergency room, getting his pain under control with IV nitroglycerin, Dilaudid, and heparin. By the time, he was in the paving and surfacing labourer, he was pain free. The patient has history of coronary artery disease and has had multiple stents put in a number of years ago. During one of those stent placement, he apparently did have an KS. He has a history of hypertension, type 2 diabetes, and elevated cholesterol. He has significant family history of premature coronary artery disease. There is no history of recent tobacco abuse. He quit smoking a number of years ago. He is currently in functional class 2-3 with no paroxysmal nocturnal dyspnea or orthopnea. He denies lightheadedness, dizziness, syncope, presyncope, palpitations, or ankle swelling. He has no history of rheumatic fever, heart murmur, heart failure, dilated or enlarged heart or any diagnosed cardiac arrhythmias. His echocardiogram on May 14 revealed an ejection fraction of 60-65% with [id number] LVH with normal internal dimension and wall motion. His current list of medications includes, PATIENT'S NAME: BAR ASHFORD [facility] AGE: 51 Y [address] ROOM: G[address] [place], [place] [address] LOCATION: GPCU ADMIT DATE: 05/16/2017 History & Physical DISCHARGE DATE: FAMILY PHYSICIAN: Peggy Sanchez APRN ATTENDING PHYSICIAN: Mackenzie Victor 1. Lisinopril 20 mg a day. 2. Metformin 1 g b.i.d. 3. Atorvastatin 80 mg a day. 4. Insulin. 5. Gabapentin 300 mg b.i.d. 6. Carvedilol 12.5 b.i.d. 7. Amlodipine 5 mg a day. 8. Furosemide 20 mg p.r.n. 9. Protonix 40 mg a day. 10. Brilinta 90 b.i.d. 11. Baby aspirin 81 mg a day. 12. Nitroglycerin p.r.n. ALLERGIES: NO KNOWN DRUG ALLERGY. PAST MEDICAL HISTORY: 1. Five different stent placed in his coronaries. 2. Right knee surgery. 3. Right shoulder surgery. 4. Shoulder manipulation done on his right shoulder recently. 5. History of kidney stones. SOCIAL HISTORY: The patient is . He works at [employer] in [place]. He denies abusing alcohol. His appetite and weight are stable. Sleep is fair. FAMILY HISTORY: Positive for premature coronary artery disease. REVIEW OF SYSTEMS: A 12-point review of systems revealed, 1. He has lately been feeling fatigued. 2. He has also somewhat been gaining weight. PHYSICAL EXAMINATION: VITAL SIGNS: On examination, his blood pressure is 160/80, heart rate is in the 70s and 80s, respirations 18, and afebrile. HEENT: Normal. NECK: Supple with no JVD, thyromegaly, lymph adenopathy, or carotid bruit. HEART: PMI is not well located. First and second heart sounds are regular. There are no added sounds or murmurs. CHEST: Clear to auscultation. ABDOMEN: Soft and nontender. Bowel sounds are normally present. EXTREMITIES: Reveal no edema. PATIENT'S NAME: ASHFORD, BAR [facility] AGE: 51 Y [address] ROOM: [place] [address] LOCATION: [facility] ADMIT DATE: 05/16/2017 History & Physical DISCHARGE DATE: FAMILY PHYSICIAN: Peggy Sanchez APRN ATTENDING PHYSICIAN: Mackenzie Victor CENTRAL NERVOUS SYSTEM: Intact. ASSESSMENT: A 51-year-old male patient with a recurrence of chest pain, just 4 days after his initial drug-eluting stent placement for acute inferior wall myocardial infarction. He is going to be taken to the paving and surfacing labourer and cardiac catheterization will be performed, and based on his anatomy, further management decisions will be made. MD NATHAN PEREA/yemi /[id number] D: T: HISTORY & PHYSICAL
[~2017-05-16 14:40] MED LIST changes: -ASPIRIN EC81 MG PO; -JARDIANCE10 MG PO
[2017-05-16 14:50] LABS: BASOPHIL # 0.1 K/uL (0.0-0.2); BASOPHIL % 0.6 %; EOSINOPHIL # 0.3 K/uL (0.0-0.5); HEMOGLOBIN 16.1 g/dL (12.0-17.0); IMMATURE GRANULOCYTE # 0.1 K/uL (0.0-0.3); IMMATURE GRANULOCYTE % 1.1 %; LYMPHOCYTE # 1.9 K/uL (0.8-4.0); LYMPHOCYTE % 18.6 %; MCH 34.1 pg (27.0-34.0); MCHC 36.6 gm/dL (32.0-36.5); MCV 93.2 fl (83.0-98.0); MONOCYTE # 0.6 K/uL (0.0-1.0); MONOCYTE % 5.5 %; MPV 10.5 fl (9.4-12.4); NEUTROPHIL # (ANC) 7.3 K/uL (1.4-9.0); NEUTROPHIL % 71.2 %; NRBC % 0 /100WBC (0-0.00); PLATELET COUNT 217 K/uL (150-450); RBC 4.72 M/uL (4.00-6.00); RDW-CV 12.5 % (11.9-14.6); WBC 10.3 K/uL (4.0-11.0)
[2017-05-16 14:58] LABS: INR - (THERAPEUTIC) 0.97 (0.92-1.07); PROTIME 10.2 SECONDS (9.8-11.4); PTT 25 SECONDS (25-32)
[2017-05-16 15:09] LABS: ALBUMIN 3.8 gm/dL (3.5-5.0); ANION GAP 12.3 (10.0-19.0); CALCIUM 9.3 mg/dL (8.5-10.5); MAGNESIUM 1.5 mg/dL (1.8-2.6); POTASSIUM 4.3 mMol/L (3.7-5.1); TOTAL PROTEIN 7.8 g/dL (6.0-8.4)
--- NOTE | 2017-05-16 21:48 | NUR ---
51 Y/O MALE ADMITTED FOR CHEST PAIN. PT RECENTLY HAD A HEART CATH WITH STENT PLACEMENT AT [facility] LAST DARVIN 05/13/17, WAS DISCHARGED YESTERDAY 05/15/17 AND RE-ADMITTED TODAY WITH CHEST PAIN, HAD A HEART CATH & ANOTHER STENT PLACED. PT IS A&OX3. [facility] MEDICAL & SURGICAL HISTORY - CORONARY ARTERY DISEASE, HYPERTENSION, HIGH CHOLESTEROL, MYOCARDIAL INFARCTION, VARICOSE VEINS, PT HAS HAD A TOTAL OF 6 HEART CATHETERIZATIONS AND A TOTAL OF 7 STENTS PLACED. DMII, NEUROPATHY, HX RENAL CALCULI & REMOVAL, URETHRAL STRICTURE & HAD TO HAVE A PROCEDURE TO REBUILD THE URETHRA, RT KNEE REPAIR, & RT SHOULDER MANIPULATION. PT PRIMARY CARE NURSE BRI NELSON WAS GIVEN UPDATE ON PT HISTORY.
[2017-05-16 23:09] LABS: BASOPHIL % 0.4 %; EOSINOPHIL # 0.3 K/uL (0.0-0.5); HEMATOCRIT 39.4 % (37.0-53.0); HEMOGLOBIN 14.2 g/dL (12.0-17.0); IMMATURE GRANULOCYTE # 0.1 K/uL (0.0-0.3); IMMATURE GRANULOCYTE % 0.8 %; LYMPHOCYTE # 2.2 K/uL (0.8-4.0); LYMPHOCYTE % 22.9 %; MCH 33.6 pg (27.0-34.0); MCV 93.4 fl (83.0-98.0); MONOCYTE # 0.6 K/uL (0.0-1.0); MONOCYTE % 6.5 %; MPV 10.7 fl (9.4-12.4); NEUTROPHIL # (ANC) 6.4 K/uL (1.4-9.0); NEUTROPHIL % 66.4 %; NRBC % 0 /100WBC (0-0.00); PLATELET COUNT 215 K/uL (150-450); RBC 4.22 M/uL (4.00-6.00); RDW-CV 12.8 % (11.9-14.6); WBC 9.7 K/uL (4.0-11.0)
[2017-05-17 02:14] LABS: BASOPHIL # 0.1 K/uL (0.0-0.2); BASOPHIL % 0.6 %; EOSINOPHIL # 0.3 K/uL (0.0-0.5); EOSINOPHIL % 3.2 %; HEMATOCRIT 39.3 % (37.0-53.0); HEMOGLOBIN 14.2 g/dL (12.0-17.0); IMMATURE GRANULOCYTE # 0.1 K/uL (0.0-0.3); IMMATURE GRANULOCYTE % 0.8 %; LYMPHOCYTE # 2.4 K/uL (0.8-4.0); MCH 33.9 pg (27.0-34.0); MCHC 36.1 gm/dL (32.0-36.5); MCV 93.8 fl (83.0-98.0); MONOCYTE # 0.7 K/uL (0.0-1.0); MONOCYTE % 6.3 %; MPV 10.6 fl (9.4-12.4); NEUTROPHIL # (ANC) 6.8 K/uL (1.4-9.0); NEUTROPHIL % 66.1 %; NRBC % 0 /100WBC (0-0.00); PLATELET COUNT 204 K/uL (150-450); RBC 4.19 M/uL (4.00-6.00); RDW-CV 12.9 % (11.9-14.6); WBC 10.3 K/uL (4.0-11.0)
[2017-05-17 03:14] LABS: ALBUMIN 3.2 gm/dL (3.5-5.0); ANION GAP 11.8 (10.0-19.0); CALCIUM 8.9 mg/dL (8.5-10.5); POTASSIUM 3.8 mMol/L (3.7-5.1); TOTAL PROTEIN 6.5 g/dL (6.0-8.4)
[2017-05-17 03:16] LABS: TOTAL BILIRUBIN 0.5 mg/dL (0.0-1.5)
--- NOTE | 2017-05-17 05:20 | NUR ---
Significant Event: PATIENT IS A/O X3. VSS. HR 60'S. SBP 130-140'S. AFEBRILE. 02 SATS IN MID 90'S ON RA. C/O HEADACHE THROUGHOUT THE SHIFT. 25MG ULTRAM AND TYELNOL GIVEN X1 WITH SOME RELIEF. LUNGS CLEAR/DIM THROUGHOUT. RIGHT RADIAL CATH SITE. SITE IS SOFT, CSM WNL, SLIGHT OOZE WHEN TR BAND TAKEN OFF OTHERWISE BANDAID COBAN C/D/I. UP WITH 1A. BOWELS ACTIVE. RIGHT GROIN BLACK/BRUSIED R/T PREVIOUS CATH SITE A FEW DAYS AGO. IV TO LEFT AC SL. C/O BURNING PAIN WHEN BENDS CATHETER BUT FLUSHES WELL WITH GOOD BLOOD RETURN. ON ACHS ACCUCHECKS. Follow up: CONTINUE TO MONITOR. POSSBILY HOME IN AM.
[2017-05-17] MEDS ORDERED: ASPIRIN EC81 MG PO (13:11)
[2017-05-17] MEDS ORDERED: JARDIANCE10 MG PO (13:12)
--- NOTE | 2017-05-17 13:34 | NUR ---
Diabetes center note [id number] Nursing requested education for patient at time of dismissal. Diabetes Education is provided on all topics on Survival skills assessment form in detail. Patient states he has been testing blood sugars at home, infrequently, new meters provided and will need script, or to obtain Reli On meter at [facility] for less cost. Recommended for patient to test blood sugars 3-4 times per day, FBS and 2 hours post meal and record all in log book to take to Peggy Sanchez APRN for on-going assessment of blood sugar control, and possible need for Novolog insulin to improve glycemic control. A copy of the Assessment is provided to patient and phone number for Diabetes Center, also states he would like to go to the [facility] to see Animal Stunner. A1C 11.9 % discussed and patient is aware of complications with heart, eyes, kidneys and nerves, how we can reduce risks of these with proper control of blood sugars. Spouse in room at time of education, see assessment form on chart with education provided. Jardiance action discussed, also on Levemir 60 units BID and Metformin 1000 mg. Patient and spouse state understanding education provided and appreciate x2 new meters provided.
--- NOTE | 2017-05-17 15:12 | NUR ---
Introduced self and role of care management to patient and family. He lives with hs in [place]. He states that he is able to do all his own ADL's. His states she can help if needed. We did discuss why he had not taken his Brilinta as ordered when he was discharged this weekend. He states that his insurance had not authorized it so he could not fill the script. He also did not take his ASA. I explained the reason why he needs to take his Brilinta as ordered. He verbalized understanding. He has samples from the office, I gave him a Brillinta discount card. He plans on returning home on discharge. He denies any needs at this time. Will continue to follow.
--- NOTE | 2017-05-17 15:27 | NUR ---
Dischage Note: VSS. Discharge intrustions given. Patient verblized understanding with discahrge teaching. Diabetic education came prior to dismissal and did diabetic teaching. Patient refused pnemonia vaccine.
== END 2017-05-17 13:30 | disposition disaster alternative care site (69) ==
LOC: GMED 14:40 → GPCU 15:55
PROVIDERS: Emergency Medicine; ADMIT Internal Medicine Interventional Cardiology
DX: I21.4 Non-ST elevation (NSTEMI) myocardial infarction (principal); I25.10 Atherosclerotic heart disease of native coronary artery without angina pectoris; E78.00 Pure hypercholesterolemia, unspecified; I10 Essential (primary) hypertension; E11.9 Type 2 diabetes mellitus without complications; Z87.891 Personal history of nicotine dependence; Z79.82 Long term (current) use of aspirin; Z79.899 Other long term (current) drug therapy; Z98.890 Other specified postprocedural states; Z95.5 Presence of coronary angioplasty implant and graft
CPT/HCPCS: C1725; C1769; C1874; C1887; C1894; C9600; G0378; J1170; J1644; J2250; J3010; J3246; J7030